=== PATIENT | female | born 1935 | race Caucasian/White ===

== ENCOUNTER 2016-11-24 23:07 | Emergency (ER) | payer MEDICARE, BC ==
--- NOTE | ~2016-11-24 | CT71 ---
[facility] A Service of [facility] / [facility] RADIOLOGY TEXT RESULTS PATIENT: SANDER SANTOS LOCATION: [place] : 37 UNIT #: [id number] AGE: [address]: Summer Ramos SEX: F ORDER DR: [id number] [facility]. [place], [place] [address] [id number] MR#: [id number] Acc #: [id number] NAME: SANDER SANTOS : 1935 SEX: F STUDY DATE/TIME: 11/25/2016 1:18 UNIT: CFTX ROOM: STUDY DESCRIPTION: CT Head Wo Contrast Attending Physician: Summer Ramos Pa-C Ordering Physician: Summer Ramos Pa-C Primary Care Physician: No Primary Care Physician MEDICAL IMAGING REPORT This report is preliminary unless electronic signature is present EXAM CT head, noncontrast, 11/25/2016 HISTORY 81-year-old female in the ED after acute injury. Fell. She complains of headache and right posterior back pain. TECHNIQUE CT examination of the head without IV contrast. This CT exam was performed with one or more of the following radiation dose reduction techniques: automatic control, adjustment of mA and/or kV according to patient size, and iterative reconstruction. FINDINGS No acute intracranial abnormality. No visible skull fracture. 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 No evidence of intracranial hemorrhage, mass, mass effect, cerebral edema or hydrocephalus. Mild diffuse chronic low-attenuation white matter changes are stable. IMPRESSION 1. No acute intracranial abnormality. No skull fracture. 2. 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 3. Mild diffuse chronic changes as noted above. 4. No change since 10/12/2014. Dictated by... Torin Leonardo M.D. THIS IS AN ELECTRONICALLY VERIFIED REPORT Torin Leonardo M.D. at 11/26/2016 5:30 AM [facility] A Service of [facility] / [facility] RADIOLOGY TEXT RESULTS PATIENT: SANDER SANTOS LOCATION: [facility] : 36 UNIT #: [id number] AGE: [address]: Summer Ramos SEX: F ORDER DR: RASHI/rnr TD: 11/26/2016 00:24 JOB #: [id number] MEDICAL IMAGING REPORT COPY
--- NOTE | ~2016-11-24 | CT2 ---
[facility] A Service of [facility] RADIOLOGY TEXT RESULTS PATIENT: SANDER SANTOS LOCATION: [facility] : 37 UNIT #: [id number] AGE: [address]: Summer Ramos SEX: F ORDER DR: [id number] [facility]. [place], [place] [address] [id number] MR#: [id number] Acc #: [id number] NAME: SANDER SANTOS : 1935 SEX: F STUDY DATE/TIME: 11/25/2016 1:27 UNIT: CFTX ROOM: STUDY DESCRIPTION: CT Abd and Pelv W Cont Attending Physician: Summer Ramos Pa-C Ordering Physician: Summer Ramos Pa-C Primary Care Physician: No Primary Care Physician MEDICAL IMAGING REPORT This report is preliminary unless electronic signature is present EXAM CT chest with contrast 11/25/2016 HISTORY 81-year-old female in the ED after a fall today. She complains of right side back pain TECHNIQUE CT examination of the chest was performed with IV contrast. This CT exam was performed with one or more of the following radiation dose reduction techniques: automatic control, adjustment of mA and/or kV according to patient size, and iterative reconstruction. FINDINGS There is no evidence of acute traumatic injury within the chest or visualized upper abdomen. No acute fracture of ribs, sternum or thoracic spine. The lungs are clear with no pneumothorax or pleural effusion. Thoracic aorta is normal in caliber. Mild cardiomegaly. IMPRESSION 1. No acute abnormality within the chest. No evidence of acute traumatic injury. 2. Cardiomegaly. Pacemaker. 3. Advanced chronic left renal atrophy. Dictated by... Torin Leonardo M.D. THIS IS AN ELECTRONICALLY VERIFIED REPORT Torin Leonardo M.D. at 11/27/2016 9:53 PM LALYW/marleny TD: 11/26/2016 00:31 [facility] A Service of [facility] RADIOLOGY TEXT RESULTS PATIENT: SANDER SANTOS LOCATION: [facility] : 37 UNIT #: [id number] AGE: [address]: Summer Ramos SEX: F ORDER DR: JOB #: [id number] MEDICAL IMAGING REPORT COPY
[~2016-11-24 23:07] MED LIST: ALBUTEROL 0.5ML INH; ALBUTEROL SULF8.5 G1 IH; ALBUTEROL2.5 MG/0.5 IH; APAP325 M1 PO; BENAZEPRIL HCL40 MG PO; BUSPIRONE HCL10 MG PO; CLARITIN10 M2 PO; CLARITIN10 M3 PO; CLONAZEPAM0.5 MG PO; COMBIVENT MININEB INH; COUMADIN1 MG PO; FENOFIBRATE160 MG PO; FLONASE 0.05% N16 G1; FLONASE16 GM; GLUCOPHAGE500 M1 PO; GLUCOPHAGE500 MG PO; KLONOPIN0.5 M3 PO; KLONOPIN0.5 MG PO; LEVAQUIN PO; LEVOTHYROXINE100 MCG PO; LEVOTHYROXINE88 MCG PO; LEVOXYL100 MC1 PO; LORATADINE PO; LOTENSIN20 MG; LOTENSIN20 MG PO; LOVASTATIN20 M1 PO; MAG-OX 400400 M1 PO; MEDROL4 MG/DOSE- PO; METFORMIN HCL500 M1 PO; METOPROLOL SUCC50 MG PO; METOPROLOL TAR25 MG PO; NORVASC PO; PAIN RELIEF325 M1 PO; PERSANTINE75 MG PO; PRAVASTATIN SOD40 MG PO; PREDNISONE PO; PRESERVISION A1 EAC3 PO; PRESERVISION SO1 CAP PO; PRESERVISION1 EA PO; PRILOSEC PO; PROAIR HFA8.5 GM IH; PROTONIX PO; RANITIDINE HCL150 M1 PO; SOTALOL120 MG PO; SPIRIVA18 MCG INH; SUPER B COMPLEX1 CAP PO; SYMBICORT INH; VIBRAMYCIN100 M1 PO; VITAMIN D-32000 UNIT PO; VITAMIN D3 5,01 EACH PO; VITAMIN D35000 UNIT PO; WARFARIN SODIUM2 MG PO; ZYPREXA2.5 MG PO; [UNRECOGNIZED DRUG - OTHER] PO
[2016-11-24 23:25] LABS: POC - TROPONIN <0.05 ng/mL (<=0.05)
[2016-11-24 23:34] LABS: URINE SOURCE CLEAN CATCH
[2016-11-24 23:35] LABS: BASOPHIL# 0.1 X10e3 (0-0.3); BASOPHIL% 0.7 % (0-2.5); EOSINOPHIL# 0.2 X10e3 (0-0.7); EOSINOPHIL% 2.3 % (0.0-7.0); HEMATOCRIT 39.4 % (35.0-45.0); HEMOGLOBIN 13.1 gm/dL (12.0-16.0); LYMPHOCYTE# 1.4 X10e3 (1.0-3.5); MEAN CELL VOLUME 89.3 FL (83-96); MEAN CORPUSCULAR HEMOGLOBIN 29.6 PG (28-34); MEAN CORPUSCULAR HGB CONC 33.2 g/dL (30-36); MEAN PLATELET VOLUME 8.2 FL (6.5-11.5); MONOCYTE# 1.1 X10e3 (0-1.0); MONOCYTE% 15.3 % (3.0-12.0); NEUTROPHIL# 4.6 X10e3 (1.5-7.1); NEUTROPHIL% 62.7 % (40-75); PLATELET COUNT 249 X10e3 (140-420); RED BLOOD COUNT 4.41 X10e (3.90-5.30); RED CELL DISTRIBUTION WIDTH 13.6 % (11.0-15.5); WHITE BLOOD COUNT 7.4 X10e3 (4.0-10.5)
[2016-11-24 23:39] LABS: URINE APPEARANCE CLEAR; URINE BILIRUBIN NEG (NEG); URINE BLOOD TRACE (NEG); URINE COLOR YELLOW; URINE GLUCOSE NEG (NEG); URINE KETONE TRACE (NEG); URINE LEUKOCYTE ESTERASE 2+ (NEG); URINE NITRATE NEG (NEG); URINE PROTEIN NEG (NEG); URINE SPECIFIC GRAVITY 1.025 (1.003-1.035); URINE UROBILINOGEN 0.2 MG/DL (NEG)
[2016-11-24 23:41] LABS: CULTURE INDICATED? YES; URINE BACTERIA AUWI NEG (NEGATIVE); URINE SQUAMOUS EPITHELIAL CELL OCC /[HPF]
[2016-11-24 23:49] LABS: URINE CRYSTALS CALCIUM OXALATE /[HPF]
[2016-11-24 23:50] LABS: DIFF IND NO
[2016-11-25 00:22] LABS: PARTIAL THROMBOPLASTIN TIME 66.9 SECONDS (23.5-31.3)
[2016-11-25] MEDS ORDERED: LOVASTATIN20 M1 PO (00:26)
[2016-11-25] MEDS ORDERED: LEVOTHYROXINE88 MCG PO (00:27)
[2016-11-25] MEDS ORDERED: COUMADIN3 MG PO (00:27)
[2016-11-25] MEDS ORDERED: LOTENSIN20 MG PO (00:27)
[2016-11-25] MEDS ORDERED: CLARITIN10 M3 PO (00:28)
[2016-11-25] MEDS ORDERED: CLONAZEPAM0.5 MG PO (00:28)
[2016-11-25] MEDS ORDERED: METOPROLOL SUCC25 MG PO (00:28)
[2016-11-25] MEDS ORDERED: AMLODIPINE BESYL5 MG PO (00:28)
[2016-11-25] MEDS ORDERED: GLUCOPHAGE500 M1 PO (00:28)
[2016-11-25] MEDS ORDERED: ZYPREXA2.5 MG PO (00:29)
[2016-11-25] MEDS ORDERED: VITAMIN D35000 UNI1 PO (00:29)
[2016-11-25] MEDS ORDERED: PROTONIX PO (00:29)
[2016-11-25] MEDS ORDERED: PRESERVISION A1 EAC1 PO (00:29)
[2016-11-25] MEDS ORDERED: COMBIVENT U/D3 M2 INH (00:30)
[2016-11-25] MEDS ORDERED: RANITIDINE HCL150 M1 PO (00:30)
[2016-11-25] MEDS ORDERED: SYMBICORT INH (00:31)
[2016-11-25] MEDS ORDERED: ALBUTEROL2.5 MG/0.5 INH (00:31)
[2016-11-25] MEDS ORDERED: FLOVENT DI50 MCG/DIS INH (00:31)
[2016-11-25 00:36] LABS: ALBUMIN SERUM 3.8 g/dL (3.5-5.0); ALKALINE PHOSPHATASE 82 U/L (32-92); ALT (SGPT) 11 U/L (10-40); AST (SGOT) 18 U/L (10-42); BILIRUBIN,TOTAL 0.4 mg/dL (0.2-2.0); BLOOD UREA NITROGEN 18 mg/dL (9-23); CALCIUM SERUM 8.9 mg/dL (8.4-10.2); CARBON DIOXIDE 27 mmol/L (22-31); CHLORIDE 98 mmol/L (100-111); CREATININE SERUM 0.8 mg/dL (0.6-1.4); GLOM FILT RATE Estimated ABOVE60 mL/min (>60); GLUCOSE FASTING 155 mg/dL (70-110); POTASSIUM 3.5 mmol/L (3.5-5.1); PROTEIN TOTAL SERUM 6.8 g/dL (6.0-8.3); SODIUM 134 mmol/L (135-145)
[2016-11-25 00:38] LABS: BILIRUBIN, DIRECT <0.1 mg/dL (0.0-0.2); BILIRUBIN,INDIRECT 0.3 mg/dL (0.0-0.9)
== END 2016-11-25 03:10 | disposition home or self-care (01) ==
LOC: CFTX 23:07
PROVIDERS: Physician Assistant Medical
DX: S30.1XXA Contusion of abdominal wall, initial encounter (principal); S20.211A Contusion of right front wall of thorax, initial encounter; T45.511A Poisoning by anticoagulants, accidental (unintentional), initial encounter; I48.91 Unspecified atrial fibrillation; I10 Essential (primary) hypertension; E11.9 Type 2 diabetes mellitus without complications; J44.9 Chronic obstructive pulmonary disease, unspecified; Z79.899 Other long term (current) drug therapy; Z88.0 Allergy status to penicillin; Z88.2 Allergy status to sulfonamides; Z91.013 Allergy to seafood; Z88.8 Allergy status to other drugs, medicaments and biological substances; W19.XXXA Unspecified fall, initial encounter; Y92.009 Unspecified place in unspecified non-institutional (private) residence as the place of occurrence of the external cause
CPT/HCPCS: 36415; 70450; 71260; 74177; 80048; 80076; 81003; 82553; 84484; 85025; 85610; 85730; 87086; 99284; Q9967

== ENCOUNTER → 2017-05-28 | Outpatient (CLI) | payer MEDICARE, BC ==
[~2017-05-28] MED LIST changes: +ALBUTEROL2.5 MG/0.5 INH; +AMLODIPINE BESYL5 MG PO; +COMBIVENT U/D3 M2 INH; +COUMADIN3 MG PO; +FLOVENT DI50 MCG/DIS INH; +METOPROLOL SUCC25 MG PO; +PRESERVISION A1 EAC1 PO; +VITAMIN D35000 UNI1 PO
--- NOTE | ~2017-05-28 | US84 ---
[id number] [facility]. [facility] [address] [place], [place] [address] [id number] O MR#: [id number] Acc #: [id number] NAME: SANDER SANTOS : 1935 SEX: F STUDY DATE/TIME: 05/28/2017 16:34 UNIT: CNIV ROOM: STUDY DESCRIPTION: US LE Veins Complete Surinder Stdy Attending Physician: Dawson Sprague M.D. Referring Physician: Dawson Sprague M.D. Ordering Physician: Dawson Sprague M.D. Primary Care Physician: Carla Steiner M.D. MEDICAL IMAGING REPORT This report is preliminary unless electronic signature is present EXAM Bilateral lower extremity venous duplex HISTORY Edema. FINDINGS Duplex imaging in the lower extremities reveals patent femoral popliteal tibial peroneal veins bilaterally with normal venous filling in all the visualized veins. No evidence of DVT is seen. IMPRESSION No evidence of DVT is seen in the lower extremities bilaterally. Dictated by... Ayaz Nuñez M.D. SA/marleny TD: 05/29/2017 12:28 JOB #: [id number] MEDICAL IMAGING REPORT Page 1 of 1
== END | disposition home or self-care (01) ==
LOC: CNIV 16:00
DX: R60.0 Localized edema (principal)
CPT/HCPCS: 93970